=== PATIENT | female | born 1970 | race Caucasian/White ===

== ENCOUNTER 2020-03-22 19:49 | Emergency (ER) | payer SELFPAY ==
[2020-03-22] MEDS ORDERED: SULFAMETH/TRIMETH DS 800/160 MG TABLET PO STA (20:12)
--- NOTE | 2020-03-22 20:14 | ED Physician Documentation ---
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 She was told that her ears were impacted and nothing could be done about it. Subsequently over the last week she has had severe left ear pain radiating down towards the jaw with green snot. No fevers. Some hearing loss. Review of Systems Constitutional: reports: Reviewed and negative Eyes: reports: Reviewed and negative Ears: reports: Loss of hearing, Ear pain, Drainage/discharge Nose: reports: Rhinorrhea / runny nose, Congestion PD PAST MEDICAL HISTORY - Present Medications Home Medications: Ambulatory Orders Medication Instructions Recorded Confirmed Cyclobenzaprine [Flexeril] 10 mg PO PRN PRN 03/22/20 03/22/20 Escitalopram Oxalate [Lexapro] 5 mg PO DAILY 03/22/20 03/22/20 Sulfamethoxazole/Trimethoprim 1 each PO BID 7 Days #20 tablet 03/22/20 [Sulfamethoxazole-Tmp Ds Tablet] - Allergies Allergies/Adverse Reactions: Allergies Allergy/AdvReac Type Severity Reaction Status Date / Time Penicillins Allergy Hives Verified 03/22/20 19:55 PD ED PE NORMAL - Vitals Vital signs reviewed: Yes - General General: Alert and oriented X 3, No acute distress - HEENT HEENT: Other (There is absolutely no impaction on either side, no ear wax in general. She does have left otitis media. No sinus tenderness.) - Neuro Neuro: Alert and oriented X 3, Normal speech Results - Vitals Vitals: Vital Signs - 24 hr 03/22/20 19:52 Temperature 37.2 C Heart Rate 89 Respiratory 16 Rate Blood Pressure 131/82 H O2 Saturation 100 Oxygen O2 Source Room air Departure - Departure Disposition: 01 Home, Self Care Clinical Impression: LOM (left otitis media) Qualifiers: Otitis media type: suppurative Chronicity: acute Recurrence: recurrent Spontaneous tympanic membrane rupture: without spontaneous rupture Qualified Code(s): H66.005 - Acute suppurative otitis media without spontaneous rupture of ear drum, recurrent, left ear Condition: Good Record reviewed to determine appropriate education?: Yes Instructions: ED Otitis Media Acute Adult Prescriptions: Sulfamethoxazole/Trimethoprim [Sulfamethoxazole-Tmp Ds Tablet] 1 each PO BID 7 Days #20 tablet Comments: If not better in 5 to 7 days follow-up with your ear nose and throat physician for reevaluation. Return for new or worsening symptoms.
[2020-03-22 20:31] VITALS: BP 129/84
== END 2020-03-22 20:31 | disposition home or self-care (01) ==
LOC: ED 19:49
DX: H66.005 Acute suppurative otitis media without spontaneous rupture of ear drum, recurrent, left ear (principal)
CPT/HCPCS: 99282; 99283; A9270

== ENCOUNTER 2020-04-01 10:28 | Emergency (ER) | payer SELFPAY ==
--- NOTE | 2020-04-01 11:46 | ED Physician Documentation ---
History of Present Illness - Stated complaint Stated Complaint: FACE SWELLING - Chief complaint Chief Complaint: General - History obtained from History obtained from: Patient - Additonal information Additional information: 49-year-old female presents to the emergency department for evaluation of intermittent facial swelling. She has a history of facial cancer and she completed radiation therapy through [facility] in November of this year. However since then she has had intermittent bouts of facial swelling around the eyes lips and sometimes the tongue. She reports that intermittently she has been placed on steroids for control of this. She has been in communication with her oncologist who told her to follow-up with her primary care doctor. Patient has not been able to follow-up with PCP. She reports that the swelling this morning was the worst it has ever been. She felt like she was slurring her words. She has no difficulty with phonation and swallow. She has no shortness of breath or chest pain. No recent fevers. She was seen about a week and a half ago for ear pain and diagnosed with otitis media. She is completed a course of antibiotics and feels that those symptoms have resolved Review of Systems Constitutional: denies: Fever, Chills Eyes: reports: Reviewed and negative, Other (facial swelling around the right eye, cheek and lips) Ears: reports: Reviewed and negative Nose: reports: Reviewed and negative Throat: reports: Reviewed and negative Cardiac: reports: Reviewed and negative Respiratory: reports: Reviewed and negative GI: reports: Reviewed and negative : reports: Reviewed and negative Skin: reports: Reviewed and negative Musculoskeletal: reports: Reviewed and negative PD PAST MEDICAL HISTORY - Past Medical History HEENT: Other Psych: Depression Other Past Medical History: states, Cancer ACC treated with radiation - Past Surgical History Past Surgical History: Yes HEENT: Other - Present Medications Home Medications: Ambulatory Orders Medication Instructions Recorded Confirmed Cyclobenzaprine [Flexeril] 10 mg PO PRN PRN 03/22/20 03/22/20 Escitalopram Oxalate [Lexapro] 5 mg PO DAILY 03/22/20 03/22/20 Sulfamethoxazole/Trimethoprim 1 each PO BID 7 Days #20 tablet 03/22/20 [Sulfamethoxazole-Tmp Ds Tablet] - Allergies Allergies/Adverse Reactions: Allergies Allergy/AdvReac Type Severity Reaction Status Date / Time Penicillins Allergy Hives Verified 04/01/20 10:50 - Social History Does the pt smoke?: Yes Smoking Status: Current every day smoker Does the pt drink ETOH?: No Does the pt have substance abuse?: No - Immunizations Immunizations are current?: Yes - POLST Patient has POLST: No PD ED PE EXPANDED - General General: Alert, No acute distress - HEENT HEENT: Ears normal (no further e/o aom, oe), L TM dull, Moist mucous membranes, Other (Facial swelling around the right eye cheek and jaw. Mild swelling of the lips. No swelling of the tongue no swelling of the floor of the mouth. No erythema or pain associated with the swelling. She has clear watery drainage from both eyes.) - Eyes Eyes: PERRL, EOMI - Neck Neck: Supple w/out meningeal sx, No tenderness. No: Adenopathy, Limited ROM - Cardiac Cardiac: Regular Rate, Regular Rhythm, Radial strong equal, Pedal strong equal, Cap refill < 2 sec - Respiratory Respiratory: Clear to ausultation edgar. No: Distress, Labored - Abdomen Abdomen: Normal Bowel sounds. No: Tender to palpation - Derm Derm: Normal color. No: Rash, Petecchiae, Purpura - Extremities Extremities: Normal - Neuro Neuro: Alert and Oriented X 3, CNII-XII intact - GCS Eye Opening: Spontaneous Verbal: Oriented Results - Vitals Vitals: Vital Signs - 24 hr 04/01/20 04/01/20 10:44 12:40 Temperature 36.2 C L 36.9 C Heart Rate 97 84 Respiratory 16 20 Rate Blood Pressure 114/80 124/71 O2 Saturation 99 99 Oxygen O2 Source Room air PD MEDICAL DECISION MAKING - ED course Complexity details: considered differential, d/w patient, d/w travel sales consultant (Oncology FARNAZ Escobedo with ) ED course: 49-year-old female presents the emergency department for evaluation of right-jelani ed facial swelling that she noted this a.m. upon waking. She has had intermittent facial swelling since completing radiation therapy in November of this year for head and axilla cancer. On exam she has no, no tenderness or fevers. The swelling is not consistent with a radiation dermatitis or facial cellulitis. Given that this is a recurring event and the swelling has improved since she woke up this a.m. I did speak with the [facility] oncology PA associated with her care FARNAZ Escobedo. He reports to me that at the time of last exam they discussed with her that the facial swelling was likely lymphedema. She has been referred to physical therapy to teach her exercises and massages to help reduce this. I did ask that his office repeat the referral so that we could ensure patient follows through with this process. I did discuss with the patient that I felt her swelling was most consistent with lymphedema and that steroids or antibiotics would not make this better. I have encouraged her to continue to follow-up with the oncology office and the physical therapy referral to teach her the exercises typically used to manage lymphedema. Emergent return precautions were discussed and they include inability to swallow or speak normally, high fevers, facial redness or inability to properly open her mouth or difficulty breathing Departure - Departure Disposition: 01 Home, Self Care Clinical Impression: Lymphedema Condition: Stable Record reviewed to determine appropriate education?: Yes Instructions: Cancer Manage Lymphedema, ED Lymphedema Comments: The swelling of your face is called lymphedema. This is a common complication of radiation therapy to any part of the body. Steroids and antibiotics will not make this better. I have asked your oncology office to make a new referral to physical therapy. There are special physical therapist that can teach you exercises and certain massages to help reduce the swelling. Please contact your oncology office to determine where you have been referred to. I encourage you to also schedule close follow-up with your primary care provider. If at any point you have difficulty swallowing or breathing or develop high fevers please return to the emergency department for a second evaluation
[2020-04-01 12:41] VITALS: BP 124/71
== END 2020-04-01 13:00 | disposition home or self-care (01) ==
LOC: ED 10:28
DX: I89.0 Lymphedema, not elsewhere classified (principal); F17.200 Nicotine dependence, unspecified, uncomplicated; C76.0 Malignant neoplasm of head, face and neck; Z92.3 Personal history of irradiation
CPT/HCPCS: 99281; 99282

== ENCOUNTER 2020-12-13 14:35 | Outpatient (CLI) | payer MEDICAID ==
--- NOTE | 2020-12-13 17:16 | XRAY Report ---
PROCEDURE: Shoulder 3 View RT INDICATIONS: R SHOULDER PX TECHNIQUE: 4 views of the shoulder were acquired. COMPARISON: None. FINDINGS: Bones: No fractures or dislocations. No suspicious bony lesions. Visualized ribs appear intact. Soft tissues: No suspicious soft tissue calcifications. IMPRESSION: No osseous lesion. If there are persistent symptoms or continued clinical concern for pathology, then repeat plain film radiographs (7-10 days) or advanced imaging (CT, MR, bone scan) should be consider ed for further evaluation. Reviewed by: Erin Wade MD, PhD on 12/13/2020 5:14 PM PDT Approved by: Erin Wade MD, PhD on 12/13/2020 5:14 PM PDT Station ID: [id number]
== END 2020-12-13 23:59 | disposition home or self-care (01) ==
LOC: DI.N 14:35
PROVIDERS: ATTEND Physician Assistant
DX: M25.511 Pain in right shoulder (principal)

== ENCOUNTER 2021-01-16 12:50 | Outpatient (CLI) | payer MEDICAID ==
[2021-01-16 18:42] LABS: BASOPHILS # (AUTO) 0.1 10^3/uL (0.0-0.1); BASOPHILS % (AUTO) 1.2 %; EOSINOPHILS # (AUTO) 0.2 10^3/uL (0.0-0.7); EOSINOPHILS % (AUTO) 1.9 %; HCT - HEMATOCRIT 44.1 % (37.0-47.0); HGB - HEMOGLOBIN 15.3 g/dL (12.0-16.0); LYMPHOCYTES # (AUTO) 2.2 10^3/uL (1.5-3.5); LYMPHOCYTES % (AUTO) 28.6 %; MEAN CORPUSCULAR HEMOGLOBIN 31.5 pg (27.0-31.0); MEAN CORPUSCULAR HGB CONC 34.7 g/dL (32.0-36.0); MEAN CORPUSCULAR VOLUME 90.9 fL (81.0-99.0); MEAN PLATELET VOLUME 9.9 fL (7.9-10.8); MONOCYTES # (AUTO) 0.6 10^3/uL (0.0-1.0); MONOCYTES % (AUTO) 8.2 %; NEUTROPHILS # (AUTO) 4.6 10^3/uL (1.5-6.6); NEUTROPHILS % (AUTO) 59.8 %; PLT - PLATELET COUNT 289 10^3/uL (130-450); RED BLOOD COUNT 4.85 10^6/uL (4.20-5.40); RED CELL DISTRIBUTION WIDTH 12.3 % (12.0-15.0); WHITE BLOOD COUNT 7.7 x10^3/uL (4.8-10.8)
[2021-01-16 19:01] LABS: ALBUMIN 4.5 g/dL (3.2-5.5); ALBUMIN/GLOBULIN RATIO 1.5 (1.0-2.2); ALKALINE PHOSPHATASE 62 IU/L (42-121); ALT ALANINE AMINOTRANSFERASE 18 IU/L (10-60); AST ASPARTATE AMINOTRANSFERASE 19 IU/L (10-42); BILIRUBIN,TOTAL 0.7 mg/dL (0.2-1.0); BUN - BLOOD UREA NITROGEN 17 mg/dL (6-20); CALCIUM 9.2 mg/dL (8.5-10.3); CARBON DIOXIDE - CO2 25 mmol/L (21-32); CHLORIDE 105 mmol/L (101-111); CHOL/HDL RATIO 3.5 (<4.4); CHOLESTEROL 197 mg/dL; CREATININE 0.8 mg/dL (0.4-1.0); GFR - MDRD 76 (>89); GLUCOSE 94 mg/dL (70-100); HDL CHOLESTEROL 56 mg/dL; LDL CHOLESTEROL,CALCULATED 121 mg/dL; LDL/HDL RATIO 2.2 (<4.4); POTASSIUM 3.9 mmol/L (3.5-5.0); SODIUM 138 mmol/L (135-145); TOTAL PROTEIN 7.6 g/dL (6.7-8.2); TRIGLYCERIDES 98 mg/dL; VLDL CHOLESTEROL 20 mg/dL
[2021-01-16 19:13] LABS: THYROID STIMULATING HORMONE 1.81 uIU/mL (0.34-5.60)
== END 2021-01-16 12:51 | disposition home or self-care (01) ==
LOC: LAB.S 12:50
PROVIDERS: ATTEND Physician Assistant
DX: Z00.00 Encounter for general adult medical examination without abnormal findings (principal); Z79.899 Other long term (current) drug therapy; H53.8 Other visual disturbances; F33.9 Major depressive disorder, recurrent, unspecified
CPT/HCPCS: 36415; 80053; 80061; 82306; 83721; 84443; 85025

== ENCOUNTER 2022-02-22 18:09 | Emergency (ER) | payer MEDICAID ==
--- OUTSIDE RECORDS SUMMARY | 2022-02-22 18:15 | EXTERNAL MEDICAL SUMMARY RPT | Continuity of Care Document ---
:1970 Author Organization [facility] Address [address] [place] [address] Phone Care Team Providers Name Role Phone Unavailable Unavailable Unavailable Wilma Fallon Unavailable Unavailable Crystal Scott Unavailable Unavailable Allergies No information. Encounters No information. Functional Status No information. Immunizations No information. Medications date description facility [id number]+0000 escitalopram oxalate All [id number]+0000 escitalopram oxalate All [id number]+0000 cyclobenzaprine All 98553832909296+0000 cyclobenzaprine All [id number]+0000 escitalopram oxalate All [id number]+0000 escitalopram oxalate All [id number]+0000 cyclobenzaprine All [id number]+0000 cyclobenzaprine All 81423430456838+0000 cyclobenzaprine All [id number]+0000 escitalopram oxalate All 78713546412206+0000 escitalopram oxalate All 57154426349208+0000 cyclobenzaprine All 13982839642983+0000 cyclobenzaprine All 41287994781785+0000 escitalopram oxalate All 10668735393603+0000 escitalopram oxalate All 91474564877965+0000 cyclobenzaprine All 02454500012897+0000 cyclobenzaprine All 50157773027716+0000 cyclobenzaprine All Problems No information. Procedures date description facility [id number]+0000 Visit Code Hold All [id number]+0000 Visit Code Hold All [id number]+0000 Visit Code Hold All Results/Labs No information. Social History date description facility [id number]+0000 Current every day smoker All 33090262315127+0000 Current every day smoker All 24718409940059+0000 Current every day smoker All 54913644317918+0000 Smoker All Vital Signs date measurement value units [id number]+0000 BMI BMI 25.31 kg/m2 34643842992947+0000 BP_diastolic BP_diastolic 73 mmHg 78585512421364+0000 BP_diastolic BP_diastolic 73 mm[H g] +0000 BP_systolic BP_systolic 107 mmHg +0000 BP_systolic BP_systolic 107 mm[Hg] +0000 heart_rate heart_rate 90 /min +0000 height_metric height_metric 151.13 cm +0000 height_standard height_standard 59.5 in +0000 respiration_rate respiration_rate 16 /min +0000 temperature_metric temperature_metric 36.56 C +0000 temperature_standard temperature_standard 9 7.8 F +0000 weight_metric weight_metric 57.61 kg +0000 weight_standard weight_standard 127 lb
--- NOTE | 2022-02-22 19:40 | ED Physician Documentation ---
History of Present Illness - Stated complaint Stated Complaint: LT SHOULDER PX - Chief complaint Chief Complaint: Ext Problem - History obtained from History obtained from: Patient - History of Present Illness Timing: How many days ago (5) Pain level max: 7 Pain level now: 0 - Additonal information Additional information: Patient is a 51-year-old female who presents to the emergency department complaint of left shoulder pain. This been ongoing for the past 5 days. 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 She states that the pain is underneath the left clavicle. Radiates backwards under the clavicle. She states that it does not reliably radiate down the arm. Seems to be worse w ith standing and worse with movement. Occasionally has numbness in the left arm. She states the pain is usually sharp. Can lasts for few seconds to a few minutes. She is concerned about potential metastases from her ACC. She is also concerned about potential DVT. Review of Systems Constitutional: denies: Fever, Chills Respiratory: denies: Dyspnea, Cough GI: denies: Vomiting, Diarrhea Skin: denies: Rash Musculoskeletal: denies: Neck pain, Back pain Neurologic: denies: Headache Psychiatric: reports: Depressed (Patient has had ongoing depression, does not currently have a counselor or therapist. She is not suicidal or homicidal.) PD PAST MEDICAL HISTORY - Past Medical History Past Medical History: Yes HEENT: Other Psych: Depression - Past Surgical History Past Surgical History: Yes HEENT: Other - Present Medications Home Medications: Ambulatory Orders Medication Instructions Recorded Confirmed Cyclobenzaprine [Flexeril] 10 mg PO PRN PRN 03/22/20 03/22/20 Escitalopram Oxalate [Lexapro] 5 mg PO DAILY 03/22/20 03/22/20 Sulfamethoxazole/Trimethoprim 1 each PO BID 7 Days #20 tablet 03/22/20 [Sulfamethoxazole-Tmp Ds Tablet] Gabapentin [Neurontin] 300 mg PO TID #90 cap 02/22/22 Meloxicam [Mobic] 7.5 mg PO BID PRN #20 tablet 02/22/22 predniSONE [Deltasone] 10 mg PO [id number] #42 tab 02/22/22 - Allergies Allergies/Adverse Reactions: Allergies Allergy/AdvReac Type Severity Reaction Status Date / Time Penicillins Allergy Hives Verified 02/22/22 18:18 - Social History Does the pt smoke?: Yes Smoking Status: Current every day smoker Does the pt drink ETOH?: No Does the pt have substance abuse?: No - Immunizations Immunizations are current?: Yes - POLST Patient has POLST: No PD ED PE NORMAL - Vitals Vital signs reviewed: Yes - General General: Alert and oriented X 3, No acute distress, Well developed/nourished - HEENT HEENT: PERRL, Moist mucous membranes - Neck Neck: Supple, no meningeal sign, No bony TTP, No JVD, No bruit - Cardiac Cardiac: RRR, Strong equal pulses - Respiratory Respiratory: No respiratory distress, Clear bilaterally - Abdomen Abdomen: Soft, Non tender, Non distended - Derm Derm: Warm and dry - Extremities Extremities: Other (Normal examination of the left shoulder. Normal examination of the left clavicle. No pain with range of motion of the shoulder. No tenderness over the trapezius, scapula or upper chest. Neurovascular intact.) - Neuro Neuro: Alert and oriented X 3, icing machine operator 2-12 intact, No motor deficit, No sensory deficit, Normal speech - Psych Psych: Normal mood, Normal affect Results - Vitals Vitals: Vital Signs - 24 hr 02/22/22 02/22/22 02/22/22 18:13 18:18 20:18 Temperature 36.3 C L 36.5 C Heart Rate 97 97 90 Respiratory 16 16 16 Rate Blood Pressure 118/91 H 118/91 H 120/88 H O2 Saturation 100 100 100 02/22/22 22:17 Temperature 36.5 C Heart Rate 91 Respiratory 16 Rate Blood Pressure 122/76 O2 Saturation 99 Oxygen O2 Source Room air - Rads (name of study) Duplex ultrasound left upper extremity Radiology: Final report received, EMP read contemporaneously, See rad report CT chest without Radiology: Final report received, EMP read contemporaneously, See rad report Left shoulder x-ray Radiology: Final report received, EMP read contemporaneously, See rad report PD MEDICAL DECISION MAKING - ED course Complexity details: reviewed results, re-evaluated patient, considered differential, d/w patient ED course: 51-year-old female presents to the emergency department with left upper chest pain radiating Behind the clavicle. There is a specific spot she points to the right underneath the clavicle. No pain on examination. No pain with range of motion. She is concerned about potential metastases of her prior cancer. CT chest does not show any acute abnormalities other than a small pulmonary nodule. She will follow-up with her doctor for this. Ultrasound is negative for DVT. Shoulder x-ray is negative. We will trial on gabapentin and anti- inflammatories for home. We will have her follow-up with her doctor for further care. Patient also endorsed depression but not suicidality. She is given a list of resources and counsel[place]. Encouraged her to speak with her primary care provider regarding her depression. Patient counseled regarding signs and symptoms for which I believe and urgent re- evaluation would be necessary. Patient with good understanding of and agreement to plan and is comfortable going home at this time This document was made in part using voice recognition software. While efforts are made to proofread this document, sound alike and grammatical errors may occur. Departure - Departure Disposition: Home, Self Care Clinical Impression: Shoulder pain, left Qualifiers: Chronicity: acute Qualified Code(s): M25.512 - Pain in left shoulder Condition: Good Instructions: ED Acute Pain [facility]O Follow-Up: Crystal Quinteros ARNP [Primary Care Provider] - Within 1 week Prescriptions: predniSONE [Deltasone] 10 mg PO [id number] #42 tab Meloxicam [Mobic] 7.5 mg PO BID PRN #20 tablet PRN Reason: Pain Gabapentin [Neurontin] 300 mg PO TID #90 cap Comments: Please follow-up with your doctor for further care. Return if you worsen. There is a very small pulmonary nodule on your chest CT, this would not be consistent with metastatic disease. This should have follow-up in approximately 6 months with your doctor. You were also given a list of counselors today. You can contact them for mental health services. Your prescriptions were sent to [facility] in [place]. Crisis Line and is available to talk to someone [email or web address] is also available to chat with someone online if you prefer. There are also many resources on this website and apps for your phone to help with your mental health You can also text the word START to [phone] to chat with someome via text. Discharge Date/Time: 02/22/22 22:17
--- NOTE | 2022-02-22 20:39 | XRAY Report ---
PROCEDURE: Shoulder 3 View LT INDICATIONS: L shoulder pain, h/o adenoid cystic carcinoma TECHNIQUE: 3 views of the shoulder were acquired. COMPARISON: None. FINDINGS: Bones: No fractures or dislocations. No suspicious bony lesions. Visualized ribs appear intact. Soft tissues: No suspicious soft tissue calcifications. IMPRESSION: 1. No fracture or dislocation. Reviewed by: Marlon Jordan MD on 02/22/2022 8:38 PM PDT Approved by: Marlon Jordan MD on 02/22/2022 8:38 PM PDT Station ID: [id number]
--- NOTE | 2022-02-22 20:51 | CT Report ---
PROCEDURE: CHEST WO INDICATIONS: L upper chest pain, h/o adenoid cystic carcinoma TECHNIQUE: Noncontrast 1mm axial images were acquired from the pulmonary apices to the posterior costophrenic an gles. Axial 5 mm soft tissue kernel reconstructions were performed as well as 8 mm axial MIP and cor onal and sagittal 5 mm reformations. For radiation dose reduction, the following was used: automate d exposure control, adjustment of mA and/or kV according to patient size. COMPARISON: None. FINDINGS: Image quality: Excellent. Lower Neck: No lymphadenopathy by size criteria. Thyroid: Visualized thyroid demonstrates no discrete nodules. Axillae: No lymphadenopathy by size criteria. Chest Wall:There are bilateral breast implants which appear intact.. Bones: Visualized osseous structures demonstrate no suspicious lesions. Lungs and Airways: No acute consolidation. The trachea and central airways are patent. Pleura: No pneumothorax or pleural effusions. Heart: Heart size is normal. No pericardial effusion. Thoracic Vessels: The aorta and pulmonary arteries are normal in size. Mediastinum and Ejnise: No lymphadenopathy by size criteria. Esophagus: No wall thickening. No hiatal hernia. Abdomen: Visualized upper abdominal solid organs and bowel loops appear normal in the absence of con trast. IMPRESSION: 1. No suspicious mass lesions correlate with patient's left upper chest pain. 2. Small indeterminate right lower lobe 0.4 cm pulmonary nodule. Recommend comparison with prior outs bj studies if available. In the absence of prior exams, recommend follow-up CT in 6 months to demons trate stability. Reviewed by: Marlon Jordan MD on 02/22/2022 8:50 PM PDT Approved by: Marlon Jordan MD on 02/22/2022 8:50 PM PDT Station ID: [id number]
[2022-02-22] MEDS ORDERED: MELOXICAM 7.5 MG TABLET PO STA (21:41)
[2022-02-22] MEDS ORDERED: CHERRY SYRUP 10 ML UDC PO ONE (21:42)
[2022-02-22] MEDS ORDERED: GABAPENTIN 100 MG CAPSULE PO STA (21:42)
[2022-02-22] MEDS ORDERED: DEXAMETHASONE 10 MG/ML VIAL PO STA (21:42)
[2022-02-22 22:17] VITALS: BP 122/76
--- NOTE | 2022-02-22 22:32 | Ultrasound Report ---
PROCEDURE: Duplex Ext Veins Left INDICATIONS: L UE pain, h/o adenoid cystic carcinoma TECHNIQUE: Real-time imaging, as well as color and pulse Doppler interrogation, were performed of the lower extr emity deep veins from the inguinal ligament to the popliteal fossa. COMPARISON: None. FINDINGS: The deep veins are normally compressible, and free of intraluminal thrombus. Color and pu lse Doppler demonstrate normal phasic intraluminal flow. There is normal augmentation response to di stal compression maneuver. IMPRESSION: 1. No evidence of deep venous thrombosis within the left upper extremity. Reviewed by: Marlon Jordan MD on 02/22/2022 10:31 PM PDT Approved by: Marlon Jordan MD on 02/22/2022 10:31 PM PDT Station ID: [id number]
== END 2022-02-22 22:17 | disposition home or self-care (01) ==
LOC: ED 18:09
DX: M25.512 Pain in left shoulder (principal); F32.A Depression, unspecified; R91.1 Solitary pulmonary nodule; F17.200 Nicotine dependence, unspecified, uncomplicated
CPT/HCPCS: 71250; 73030; 93971; 99284; A9270

== ENCOUNTER 2022-03-07 14:45 | Outpatient (CLI) | payer MEDICAID ==
[~2022-03-07 14:45] MED LIST: GADOBUTROL 7.5 MMOL/7.5 ML VIAL ONE
[2022-03-07 15:13] LABS: BASOPHILS # (AUTO) 0.1 10^3/uL (0.0-0.1); BASOPHILS % (AUTO) 0.9 %; EOSINOPHILS # (AUTO) 0.2 10^3/uL (0.0-0.7); EOSINOPHILS % (AUTO) 1.6 %; HCT - HEMATOCRIT 42.1 % (37.0-47.0); HGB - HEMOGLOBIN 14.7 g/dL (12.0-16.0); LYMPHOCYTES # (AUTO) 2.2 10^3/uL (1.5-3.5); LYMPHOCYTES % (AUTO) 20.7 %; MEAN CORPUSCULAR HEMOGLOBIN 31.2 pg (27.0-31.0); MEAN CORPUSCULAR HGB CONC 34.9 g/dL (32.0-36.0); MEAN CORPUSCULAR VOLUME 89.4 fL (81.0-99.0); MEAN PLATELET VOLUME 8.8 fL (7.9-10.8); MONOCYTES # (AUTO) 0.8 10^3/uL (0.0-1.0); MONOCYTES % (AUTO) 7.9 %; NEUTROPHILS # (AUTO) 7.1 10^3/uL (1.5-6.6); NEUTROPHILS % (AUTO) 66.6 %; PLT - PLATELET COUNT 291 10^3/uL (130-450); RED BLOOD COUNT 4.71 10^6/uL (4.20-5.40); RED CELL DISTRIBUTION WIDTH 13.5 % (12.0-15.0); WHITE BLOOD COUNT 10.7 x10^3/uL (4.8-10.8)
[2022-03-07 15:28] LABS: ALBUMIN 4.1 g/dL (3.2-5.5); ALBUMIN/GLOBULIN RATIO 1.4 (1.0-2.2); BILIRUBIN,TOTAL 0.6 mg/dL (0.2-1.0); CALCIUM 8.8 mg/dL (8.5-10.3); CREATININE 0.9 mg/dL (0.4-1.0); POTASSIUM 3.8 mmol/L (3.5-5.0); TOTAL PROTEIN 7.1 g/dL (6.7-8.2)
--- NOTE | 2022-03-07 18:02 | MRI Report ---
PROCEDURE: Orbits W/WO INDICATIONS: HEAD CANCER CONTRAST: IV CONTRAST: Gadavist ml: 5.7 TECHNIQUE: Noncontrast sagittal T1 spin echo, axial FLAIR, axial gradient echo, axial diffusion and ADC acquired through the brain. Coronal STIR, thin-slice axial T1 spin echo through the orbits. After the admin istration of contrast, thin slice axial and coronal T1 spin echo with fat saturation through the orbi ts, axial T1 spin echo with fat saturation through the brain. COMPARISON: None. FINDINGS: Image quality: Excellent. Orbits: Globes are symmetrical. The optic nerves are normal in size, without abnormal signal or enh ancement. No retrobulbar masses or fat abnormalities. The extra-ocular muscles are normal and symme tric in appearance. Lacrimal glands are normal. Optic chiasm is normal. Periorbital soft tissues a ppear normal. CSF spaces: Ventricles are normal in size and shape. Basal cisterns are patent. No extra-axial flu id collections. Brain: No intracranial bleeds or mass effects. No abnormal intracranial enhancement. Farr-white ma tter interface is intact. Diffusion weighted images demonstrate no acute ischemic insults. Pituitar y gland appears normal, without sellar or suprasellar masses. Brainstem appears normal. Normal intr avascular flow voids are present. Skull and face: In this patient with this given history, scrutiny is given to the face. To the limit s of this study, no masses or daisha abnormal enhancement can be seen. Note is made of asymmetry of th e parotid glands, right smaller than left. Calvarial marrow is normal in signal. Sinuses: Sinuses and mastoids are clear. Postoperative change can be seen of the sinuses, with bila teral antrectomy. IMPRESSION: No daisha findings of prior masses or metastatic disease can be seen. No intracranial masses are seen. Asymmetry is noted of the parotid glands, right smaller than left. Please correlate with known patien t history. Paranasal sinus postoperative change, with bilateral antrectomy. Reviewed by: Vinicio Paz MD on 03/07/2022 5:01 PM FANNIE Approved by: Vinicio Paz MD on 03/07/2022 5:01 PM [email or web address] Station ID: [id number]
[2022-03-07] MEDS ORDERED: GADOBUTROL 7.5 MMOL/7.5 ML VIAL IVP ONE (18:06)
--- NOTE | 2022-03-07 18:28 | CT Report ---
PROCEDURE: CT chest without contrast INDICATIONS: Intracranial cancer TECHNIQUE: Noncontrast 1mm axial images were acquired from the pulmonary apices to the posterior costophrenic an gles. Axial 5 mm soft tissue kernel reconstructions were performed as well as 8 mm axial MIP and cor onal and sagittal 5 mm reformations. For radiation dose reduction, the following was used: automate d exposure control, adjustment of mA and/or kV according to patient size. COMPARISON: 02/22/2022 FINDINGS: Image quality: Excellent. Lungs and pleura: No acute air space opacities. No pleural effusions or pneumothorax. Central and peripheral airways are patent and normal in caliber. 4 mm right lower lobe pulmonary nodule on image 4/214. Emphysematous changes noted in both lung apices Mediastinum: Heart size is normal. No pericardial effusion. No mediastinal adenopathy by size crit eria. Thoracic aorta and central pulmonary arteries are normal in size. Esophagus is normal in alec jayna. No hiatal hernia. Bones and chest wall: No suspicious bony lesions. No vertebral body compression fractures. No axil roxanna or supraclavicular adenopathy by size criteria. The thyroid is normal in size and there are no incidental findings. Bilateral breast prosthesis in place Abdomen: Visualized upper abdominal solid organs and bowel loops appear normal in the absence of con trast. IMPRESSION: 2 week stability of 4 mm right lower lobe pulmonary nodule. Biapical pulmonary emphysema Reviewed by: Jan Khan MD on 03/07/2022 5:27 PM [email or web address] Approved by: Jan Khan MD on 03/07/2022 5:27 PM AKDT Station ID: [id number]
== END 2022-03-07 14:46 | disposition home or self-care (01) ==
LOC: DI 14:45
PROVIDERS: ATTEND Registered Nurse
DX: C76.0 Malignant neoplasm of head, face and neck (principal); H04.209 Unspecified epiphora, unspecified side; R91.1 Solitary pulmonary nodule
CPT/HCPCS: 36415; 70543; 71250; 80053; 85025; A9585

== ENCOUNTER 2023-04-13 11:09 | Outpatient (CLI) | payer MEDICAID | END 2023-04-13 23:59 | disposition E | LOC: EMS 11:09 | DX: S21.119A Laceration without foreign body of unspecified front wall of thorax without penetration into thoracic cavity, initial encounter (principal); X58.XXXA Exposure to other specified factors, initial encounter; I46.8 Cardiac arrest due to other underlying condition | CPT/HCPCS: A0425; A0428 ==